=== PATIENT | female | born 1955 | race Caucasian/White ===

== ENCOUNTER 2024-06-07 12:00 | Emergency (ER) | payer SELFPAY ==
[~2024-06-07] VITALS: Ht 154.9 cm; Wt 86.0 kg
[~2024-06-07 12:00] MED LIST: CEPH-568 PO; CEPH-569 PO; HYDR-1348 PO; IBUP-1008 PO; MUPI1OIN NS
[2024-06-07 12:20] VITALS: O2SAT 99
[2024-06-07] MEDS ORDERED: IBUPROFEN 600MG TABLET PO ONE (12:30)
[2024-06-07] MEDS ORDERED: TETANUS, DIPHTHERIA, PERTUSSIS VAC/PF 0.5ML (>10YR OLD) IM ONE (12:30)
[2024-06-07 12:53] LABS: BASOPHILS % 0.3 % (0.0-2.0); HEMATOCRIT. 38.2 % (36.0-48.0); HEMOGLOBIN. 12.9 g/dL (12.0-16.0); LYMPHOCYTES % 11.1 % (20.0-50.0); MEAN CORPUSCULAR HEMOGLOBIN 30.1 pg (28.0-32.0); MEAN CORPUSCULAR HGB CONC 33.9 g/dL (31.0-37.0); MEAN CORPUSCULAR VOLUME 88.9 fL (81.0-99.0); MEAN PLATELET VOLUME 7.8 fl (7.4-10.4); MONOCYTES % 5.9 % (2.0-8.0); NEUTROPHILS % 81.7 % (40.0-76.0); PLATELET 268 x1000/uL (130-400); WHITE BLOOD COUNT 11.3 x1000/uL (4.5-11.0)
[2024-06-07 13:21] LABS: CHLORIDE 106 mEq/L (98-107); POTASSIUM 4.4 mEq/L (3.5-5.1); SODIUM 139 mEq/L (136-145)
[2024-06-07 13:22] LABS: CARBON DIOXIDE 24 mEq/L (21-32)
[2024-06-07 13:23] LABS: CALCIUM 9.5 mg/dL (8.7-10.4)
[2024-06-07 13:27] LABS: CREATININE 0.8 mg/dL (0.6-1.0); GLUCOSE 116 mg/dL (70-105); UREA NITROGEN BLOOD 14 mg/dL (9-23)
[2024-06-07] MEDS ORDERED: SULFAMETHOXAZOLE/TRIMETHOPRIM 800/160MG TABLET PO ONE (13:30)
[2024-06-07] MEDS ORDERED: SULF1TAB48 MT (13:59)
[2024-06-07] MEDS ORDERED: CEPH500C2 MT (13:59)
[2024-06-07] MEDS: CEPHALEXIN 250MG CAPSULE PO SCH (14:45)
[2024-06-07] MEDS: TETANUS, DIPHTHERIA, PERTUSSIS VAC/PF 0.5ML (>10YR OLD) IM ONE (15:31)
[2024-06-07] MEDS: CEPHALEXIN 250MG CAPSULE PO ONE (15:31)
[2024-06-07 15:32] VITALS: BP 162/80; PULSE 87; RESP 20; TEMP 36.78072; O2SAT 99
[2024-06-07] MEDS: SULFAMETHOXAZOLE/TRIMETHOPRIM 800/160MG TABLET PO NR (15:32)
[2024-06-07] MEDS: IBUPROFEN 600MG TABLET PO NR (15:32)
== END 2024-06-07 15:34 | disposition home or self-care (01) ==
LOC: ER 12:00
DX: L03.114 Cellulitis of left upper limb (principal); R03.0 Elevated blood-pressure reading, without diagnosis of hypertension; Z23 Encounter for immunization; Z79.1 Long term (current) use of non-steroidal anti-inflammatories (NSAID); Z90.89 Acquired absence of other organs; Z98.890 Other specified postprocedural states
CPT/HCPCS: 80048; 85025; 36415; 90715; 10060; 90471; 99284; Z7610; 96372